=== PATIENT | female | born 1970 | race Caucasian/White ===

== ENCOUNTER 2018-12-01 07:39 | Day surgery (SDC) | payer MEDICARE, MEDICAID ==
[2018-12-01] MEDS ORDERED: Dextrose 5%-Lactated Ringers 1,000 ML IV SCH (08:45)
[2018-12-01] MEDS ORDERED: Midazolam 1 MG/ML 2 ML SDV ONE (09:05)
[2018-12-01] MEDS ORDERED: fentaNYL 100 MCG/2 ML SDV ONE (09:05)
[2018-12-01] MEDS ORDERED: Propofol 200 MG/20 ML SDV ONE (10:12)
[2018-12-01] MEDS ORDERED: Propofol 200 MG/20 ML SDV IV ONE (11:00)
[2018-12-01 11:21] VITALS: BP 145/86
--- NOTE | 2018-12-03 10:27 | OR ---
DATE OF PROCEDURE: 12/01/2018 SURGEON: Demetrio Hicks MD PREOPERATIVE DIAGNOSIS: Indications for screening colonoscopy. POSTOPERATIVE DIAGNOSIS: Normal screening colonoscopy. OPERATIVE PROCEDURE: Flexible colonoscopy. ANESTHESIA: IV sedation. INDICATION FOR PROCEDURE: This is a 48-year-old presenting for initial screening colonoscopy. She has no family or personal history of colonic neoplasia. Plan is to proceed with colonoscopy with biopsies and/or polypectomy as indicated. Potential risks including bleeding and perforation were discussed, and the patient wishes to proceed. DETAILS OF PROCEDURE: The patient was taken to the operating room, placed in a left lateral decubitus position. IV sedation was administered, after which the initial digital rectal exam was performed and was unremarkable. Colonoscope was passed into the rectum with retroflexion revealing uncomplicated hemorrhoidal columns. Scope was then eventually passed to the level of the cecum. The prep was fairly good. To that level, there were no abnormalities noted. There were no areas of diverticulosis. No colitis. No polyps or other signs of neoplasia. The scope was then withdrawn. The above findings reconfirmed. The procedure concluded. The patient was taken to the recovery room in satisfactory condition. Given the lack of personal and family history of colon neoplasia, a normal examination today, recommendation would be to repeat the colonoscopy in 10 years. Demetrio Hicks MD /[id number]
== END 2018-12-01 11:30 | disposition home or self-care (01) ==
LOC: JP.SDS 07:39
PROVIDERS: ATTEND Surgery
DX: Z12.11 Encounter for screening for malignant neoplasm of colon (principal); F84.0 Autistic disorder; F31.9 Bipolar disorder, unspecified; E11.9 Type 2 diabetes mellitus without complications; Z79.4 Long term (current) use of insulin; Z88.0 Allergy status to penicillin
CPT/HCPCS: G0121; J2250; J2704; J3010; J7042

== ENCOUNTER 2020-04-11 03:28 | Emergency (ER) | payer MEDICARE, MEDICAID ==
[2020-04-11 03:55] VITALS: BP 189/96; PULSE 108
--- NOTE | 2020-04-11 04:31 | EDM.PDOC ---
ED HPI GENERAL MEDICAL PROBLEM - General Chief Complaint: Respiratory Problem Stated Complaint: COVID POSITIVE SOB Time Seen by Provider: 04/11/20 04:25 Source of Information: Reports: Patient, Old Records, RN History Limitations: Reports: No Limitations - History of Present Illness INITIAL COMMENTS - FREE TEXT/NARRATIVE: 49 yo female with known Covid presents with general body aches, malaise and a sore throat. Says she has tried to get in to be seen in the clinic, but they refuse to see her. No not overly SOB, but has some vague generalized chest pain. Thinks she may be dehydrated. Lives with her Autistic son. Onset: Gradual Onset Date: 04/04/20 Duration: Week(s): (1), Getting Worse Location: Reports: Neck, Chest, Generalized Quality: Reports: Burning (with swallowing) Severity: Moderate Improves with: Reports: None Worsens with: Reports: Other (swallowing) Context: Reports: Other (See HPI) Associated Symptoms: Reports: Chest Pain, Cough, Fever/Chills, Malaise, Shortness of Breath. 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) Throat Pain Score (Numeric/FACES): 10 - Related Data Allergies Allergy/AdvReac Type Severity Reaction Status Date / Time Penicillins Allergy Rash Verified 04/11/20 03:55 Home Meds: Home Meds Ascorbate Calcium [Vitamin C] 1,000 mg PO TID 06/19/13 [History] Cyanocobalamin (Vitamin B-12) [Vitamin B-12] 1,000 mcg SL TID 06/19/13 [History] Gabapentin [Neurontin] 800 mg PO TID 06/19/13 [History] Acetaminophen [Tylenol Arthritis Pain] 650 mg PO TID 07/13/14 [History] Cholecalciferol (Vitamin D3) [Vitamin D] 1,000 units PO TID 07/13/14 [History] medroxyPROGESTERone [Provera] 10 mg PO DAILY 07/13/14 [History] metFORMIN [Glucophage] 1,000 mg PO DAILY 07/13/14 [History] Ibuprofen [Ibu] 800 mg PO TIDMEALS 03/26/18 [History] Liraglutide [Victoza 3-Theo] 1.8 mg SQ DAILY 03/26/18 [History] Metoprolol Tartrate [Lopressor] 25 mg PO Q12HR 03/26/18 [History] Simvastatin [Zocor] 20 mg PO BEDTIME 03/26/18 [History] SitaGLIPtin [Januvia] 50 mg PO DAILY 03/26/18 [History] lamoTRIgine 200 mg PO DAILY 03/28/18 [History] Calcium Cit/Mgox/Vit D3/B6/Min [Calcium Citrate Plus Tablet] 1 each PO TID 11/28/18 [History] Dicyclomine [Bentyl] 10 mg PO Q6H PRN 11/28/18 [History] Empagliflozin [Jardiance] 10 mg PO DAILY 11/28/18 [History] estradioL [Estrace Vaginal] 1 applic VAG BEDTIME 11/28/18 [History] Cetirizine [ZyrTEC] 10 mg PO DAILY 04/11/20 [History] Dicyclomine [Bentyl] 10 mg PO Q6H PRN 04/11/20 [History] FLUoxetine HCl [Fluoxetine] 20 mg PO DAILY 04/11/20 [History] Gabapentin [Neurontin] 800 mg PO TID 04/11/20 [History] Hydrocodone/Acetaminophen [Hydrocodone-Acetamin 2.5-108/5] 15 ml PO QID PRN #500 ml 04/11/20 [Rx] Nitrofurantoin Monohyd/M-Cryst [Macrobid 100 mg Capsule] 100 mg PO Q12H #11 capsule 04/11/20 [Rx] Omeprazole 20 mg PO DAILY 04/11/20 [History] lisinopriL [Lisinopril] 2.5 mg PO DAILY 04/11/20 [History] Past Medical History HEENT History: Reports: Impaired Vision Cardiovascular History: Reports: Heart Murmur, Hypertension, Other (See Below) 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 Respiratory History: Reports: None Gastrointestinal History: Reports: Colon Polyp, GERD, Hiatal Hernia 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: 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 History: Reports: Fracture Neurological History: Reports: Migraines, Other (See Below) Other Neuro History: [place] palsey Psychiatric History: Reports: Anxiety, Bipolar, Depression, Other (See Below) Other Psychiatric History: borderline personality disorder Endocrine/Metabolic History: Reports: Diabetes, Type II Hematologic History: Reports: B12 Deficiency Immunologic History: Reports: None Oncologic (Cancer) History: Reports: None Dermatologic History: Reports: None - Infectious Disease History Infectious Disease History: Reports: None - Past Surgical History HEENT Surgical History: Reports: Oral Surgery, Tonsillectomy Cardiovascular Surgical History: Reports: None GI Surgical History: Reports: Bariatric Procedure, Cholecystectomy, EGD, Hernia, Abdominal, Other (See Below) Other GI Surgeries/Procedures: panniculectomy Female Surgical History: Reports: Tubal Ligation, Other (See Below) Other Female Surgeries/Procedures: dysfuntional bleeding Endocrine Surgical History: Reports: None Neurological Surgical History: Reports: None Social & Family History - Family History Family Medical History: Noncontributory - Tobacco Use Tobacco Use Status *Q: Never Tobacco User Second Hand Smoke Exposure: No - Caffeine Use Caffeine Use: Reports: Coffee, Soda - Recreational Drug Use Recreational Drug Use: No ED ROS GENERAL - Review of Systems Review Of Systems: See Below Constitutional: Reports: Fever, Malaise, Weakness HEENT: Reports: Rhinitis, Throat Pain. Denies: Ear Pain Respiratory: Reports: Shortness of Breath, Cough. Denies: Sputum, Hemoptysis Cardiovascular: Reports: No Symptoms Endocrine: Reports: No Symptoms GI/Abdominal: Reports: No Symptoms : Reports: No Symptoms 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: Reports: Muscle Pain (diffuse) Skin: Reports: No Symptoms Neurological: Reports: No Symptoms Psychiatric: Reports: No Symptoms ED EXAM, GENERAL - Physical Exam Exam: See Below Exam Limited By: No Limitations General Appearance: Alert, WD/WN, No Apparent Distress Eye Exam: Right Eye: Proptosis, Bilateral Eye: Normal Inspection Ears: Normal External Exam, Normal Canal, Hearing Grossly Normal, Normal TMs Ear Exam: Bilateral Ear: Auricle Normal, Canal Normal, TM normal Nose: Normal Inspection, No Blood Throat/Mouth: Normal Inspection, Normal Lips, Normal Oropharynx, Normal Voice, No Airway Compromise Head: Atraumatic, Normocephalic Neck: Normal Inspection. No: Lymphadenopathy (R), Lymphadenopathy (L) Respiratory/Chest: No Respiratory Distress, Lungs Clear, Normal Breath Sounds, No Accessory Muscle Use Cardiovascular: Regular Rate, Rhythm, No Edema GI/Abdominal: Soft, Non-Tender Back Exam: Normal Inspection. No: CVA Tenderness (R), CVA Tenderness (L) Extremities: Normal Inspection, Normal Range of Motion, Non-Tender, No Pedal Edema Neurological: Alert, Oriented, CN II-XII Intact, Normal Cognition, No Motor/Sensory Deficits Psychiatric: Normal Affect, Normal Mood Skin Exam: Warm, Dry, Intact, Normal Color, No Rash #1 Interpretation EKG Date: 04/11/20 Time: 03:50 Rhythm: NSR Rate (Beats/Min): 105 [place]: Normal P-Wave: Present QRS: Normal ST-T: Normal QT: Normal Comparison: NA - No Prior EKG Course - Vital Signs Last Recorded V/S: Last Vital Signs Temp 36.0 C L 04/11/20 03:52 Pulse 108 H 04/11/20 03:52 Resp 21 H 04/11/20 03:52 BP 189/96 H 04/11/20 03:52 Pulse Ox 97 04/11/20 03:52 - Orders/Labs/Meds Orders: Active Orders 24 hr Category Date Time Status EKG Documentation Completion [RC] ASDIRECTED Care 04/11/20 04:26 Active CULTURE URINE [RM] Stat Lab 04/11/20 05:15 Received EKG 12 Lead [EK] Routine Ther 04/11/20 04:26 Ordered Labs: Laboratory Tests 04/11/20 04/11/20 04/11/20 Range/Units 04:55 04:55 04:55 WBC 8.5 (4.5-11.0) K/uL RBC 3.76 (3.30-5.50) M/uL Hgb 13.0 (12.0-15.0) g/dL Hct 40.7 (36.0-48.0) % MCV 108 H (80-98) fL MCH 35 H (27-31) pg MCHC 32 (32-36) % Plt Count 469 H (150-400) K/uL Sodium 136 L (140-148) mmol/L Potassium 3.7 (3.6-5.2) mmol/L Chloride 103 (100-108) mmol/L Carbon Dioxide 8 L D (21-32) mmol/L Anion Gap 28.7 H (5.0-14.0) mmol/L BUN 25 H D (7-18) mg/dL Creatinine 1.5 H D (0.6-1.0) mg/dL Est Cr Clr Drug Dosing 43.15 mL/min Estimated GFR (MDRD) 37 L (>60) Glucose 228 H (74-106) mg/dL Calcium 8.8 (8.5-10.1) mg/dL Urine Color Yellow (YELLOW) Urine Appearance Slightly cloudy A (CLEAR) Urine pH 5.5 (5.0-8.0) Ur Specific [place] 1.020 (1.008-1.030) Urine Protein 100 H (NEGATIVE) mg/dL Urine Glucose (UA) 500 H (NEGATIVE) mg/dL Urine Ketones 15 H (NEGATIVE) mg/dL Urine Occult Blood Trace-intact H (NEGATIVE) Urine Nitrite Negative (NEGATIVE) Urine Bilirubin Negative (NEGATIVE) Urine Urobilinogen 0.2 (0.2-1.0) EU/dL Ur Leukocyte Esterase Trace H (NEGATIVE) Urine RBC 0-5 (0-5) Urine WBC 20-30 H (0-5) Ur Epithelial Cells Few Amorphous Sediment Not seen Urine Bacteria Many Urine Mucus Not seen Meds: Medications Discontinued Medications Generic Name Dose Route Start Last Admin Trade Name Freq PRN Reason Stop Dose Admin Hydrocodone Bitart/Acetaminophen 15 ml 04/11/20 04:38 04/11/20 04:49 Acetaminophen/Hydrocodone 108-2.5 Mg/5 Ml PO 04/11/20 04:39 15 ml ONETIME ONE Administration Nitrofurantoin Macrocrystals 100 mg 04/11/20 05:35 Macrobid PO 04/11/20 05:36 ONETIME ONE Departure - Departure Time of Disposition: 05:45 Disposition: Home, Self-Care 01 Condition: Fair Clinical Impression: Mild dehydration, Cystitis, Sore throat (viral) - Discharge Information *PRESCRIPTION DRUG MONITORING PROGRAM REVIEWED*: Yes *COPY OF PRESCRIPTION DRUG MONITORING REPORT IN PATIENT KLAUS: Yes Prescriptions: Hydrocodone/Acetaminophen [Hydrocodone-Acetamin 2.5-108/5] 15 ml PO QID PRN #500 ml PRN Reason: Pain Nitrofurantoin Monohyd/M-Cryst [Macrobid 100 mg Capsule] 100 mg PO Q12H #11 capsule Referrals: Dulce Lucero PA [Primary Care Provider] - Forms: ED Department Discharge Additional Instructions: Use either acetaminophen OR hydrocodone/acetaminophen elixir for your throat pain. Take Macrobid every 12 hrs for your UTI. Drink more fluids than you have been. Consider taking a zinc supplement 25 mg daily or 50 mg every other day for your immunity. Consider taking Vitamin D 4000 IU daily for your immunity and bone health. Consider taking an aspirin daily with food to reduce your risk of blood clots from Covid. Communicate with your doctor on your condition as things evolve. Sepsis Event Note (ED) - Evaluation Sepsis Screening Result: Possible Sepsis Risk - Focused Exam Vital Signs: Vital Signs Temp Pulse Resp BP Pulse Ox 04/11/20 03:52 36.0 C L 108 H 21 H 189/96 H 97 - My Orders Last 24 Hours: My Active Orders 04/11/20 04:26 EKG Documentation Completion [RC] ASDIRECTED EKG 12 Lead [EK] Routine 04/11/20 05:15 CULTURE URINE [RM] Stat - Assessment/Plan Last 24 Hours: My Active Orders 04/11/20 04:26 EKG Documentation Completion [RC] ASDIRECTED EKG 12 Lead [EK] Routine 04/11/20 05:15 CULTURE URINE [RM] Stat
[2020-04-11] MEDS ORDERED: Acetaminophen/HYDROcodone 108-2.5 MG/5 ML Soln 15 ML UD Cup PO ONE (04:38)
[2020-04-11] MEDS ORDERED: Nitrofurantoin Monohydrate/Macrocrystalline 100 MG Cap PO ONE (05:35)
== END 2020-04-11 05:58 | disposition home or self-care (01) ==
LOC: JP.ED 03:28
DX: E86.0 Dehydration (principal); N30.90 Cystitis, unspecified without hematuria; J02.9 Acute pharyngitis, unspecified; I10 Essential (primary) hypertension; K21.9 Gastro-esophageal reflux disease without esophagitis; F31.9 Bipolar disorder, unspecified; F41.9 Anxiety disorder, unspecified; E11.9 Type 2 diabetes mellitus without complications; Z79.84 Long term (current) use of oral hypoglycemic drugs; Z79.899 Other long term (current) drug therapy; Z88.0 Allergy status to penicillin
CPT/HCPCS: 36415; 80048; 81001; 85027; 87086; 87088; 87186; 93005; 93010; 99285; A9270